=== PATIENT | female | born 1980 | race Caucasian/White ===

== ENCOUNTER 2020-03-10 11:17 | Emergency (ER) | payer OTHER ==
[~2020-03-10] VITALS: Ht 157.5 cm; Wt 74.5 kg
[2020-03-10 11:22] VITALS: BP 140/80
[2020-03-10] MEDS ORDERED: PRED10TA PO (11:48)
== END 2020-03-10 12:09 | disposition home or self-care (01) ==
LOC: EEVIPCON 11:17 → ER 11:17
DX: L53.8 Other specified erythematous conditions (principal); T36.8X5A Adverse effect of other systemic antibiotics, initial encounter; T38.0X5A Adverse effect of glucocorticoids and synthetic analogues, initial encounter; Y92.89 Other specified places as the place of occurrence of the external cause
CPT/HCPCS: 99283